=== PATIENT | female | born 1955 | race Caucasian/White ===

== ENCOUNTER → 2018-08-05 08:58 | Outpatient (CLI) | payer BC, SELFPAY ==
[2018-08-05 10:18] LABS: Hemoglobin A1C% w Est Avg Glu 5.8 % (4.0-6.0)
[2018-08-05 11:18] LABS: Alanine Aminotransferase 71 IU/L (9-52); Albumin 4.2 g/dL (3.5-5.0); Albumin Globulin Ratio 1.6 (1.0-2.8); Alkaline Phosphatase 67 U/L (38-126); Aspartate Aminotransferase 37 IU/L (14-36); BUN Creatinine Ratio 26.7 (6-22); Bilirubin Total 0.5 mg/dL (0.2-1.3); Blood Urea Nitrogen 16 mg/dL (7-17); Calcium 9.2 mg/dL (8.4-10.2); Carbon Dioxide 25 mmol/L (22-32); Chloride 107 mmol/L (98-107); Cholesterol 199 mg/dL (140-199); Estimated Glomerular Filt Rate > 60.0 mL/min (>60); Globulin 2.7 g/dL (1.7-4.1); Glucose 115 mg/dL (80-110); HDL Cholesterol 32 mg/dL (40-60); HEMOLYSIS < 15 (0-50); LDL Cholesterol Calculated 112 mg/dL (<100); Potassium 4.3 mmol/L (3.4-5.1); Sodium 145 mmol/L (137-145); Total Protein 6.9 g/dL (6.3-8.2); Triglycerides 273 mg/dL (35-150)
[2018-08-05 17:32] LABS: Creatinine Urine Random 111.8 mg/dL
[2018-08-05 17:36] LABS: Microalbumi Creatinin Ratio Ur 5.3 ug/mg CR (<30); Microalbumin Urine Random < 0.6 mg/dL (0-1.6)
== END ==
PROVIDERS: PCP Physician Assistant; Visit Provider Physician Assistant
DX: E88.81 Metabolic syndrome and other insulin resistance (principal); I10 Essential (primary) hypertension
CPT/HCPCS: 36415; 80053; 80061; 82043; 82570; 83036

== ENCOUNTER → 2018-09-14 08:07 | Outpatient (CLI) | payer BC, SELFPAY ==
--- NOTE | 2018-09-14 | DI.MG.S_ITS ---
BILATERAL DIGITAL SCREENING MAMMOGRAM 3D/2D WITH CAD: 09/14/2018 CLINICAL: Routine screening. Family history of breast cancer. Comparison is made to exams dated: 07/22/2017 mammogram, 06/26/2016 mammogram, and 06/18/2015 mammogram - [facility]. There are scattered fibroglandular elements in both breasts. Current study was also evaluated with a Computer Aided Detection (CAD) system. There are benign biopsy clips in the right breast. No significant masses, calcifications, or other findings are seen in either breast. There has been no significant interval change. IMPRESSION: NEGATIVE There is no mammographic evidence of malignancy. A 1 year screening mammogram is recommended. This exam was interpreted at Station ID: [id number]. NOTE: For mammograms, a report in lay terms will be sent to the patient. Approximately 15% of breast malignancies will not be visualized mammographically. In the management of a palpable breast mass, a negative mammogram must not discourage biopsy of a clinically suspicious lesion. Electronically Signed By: Catracho oviedo/emmanuel:09/14/2018 09:21:51 letter sent: Normal Exam ACR BI-RADS Category 1: Negative [id number]
== END ==
PROVIDERS: PCP Physician Assistant; Visit Provider Physician Assistant
DX: Z12.31 Encounter for screening mammogram for malignant neoplasm of breast (principal); Z80.3 Family history of malignant neoplasm of breast
CPT/HCPCS: 77063; 77067

== ENCOUNTER 2018-12-31 12:47 | Emergency (ER) | payer BC, SELFPAY ==
[2018-12-31 12:55] VITALS: TEMP 36.6
--- NOTE | 2018-12-31 13:01 | DI.RAD.S_ITS ---
PROCEDURE: XR CHEST 1V INDICATIONS: chest pain TECHNIQUE: One view of the chest was acquired. COMPARISON: None. FINDINGS: Surgical changes and devices: None. Lungs and pleura: Lungs are clear. No pleural effusions or pneumothorax. Mediastinum: Mediastinal contours appear normal. Heart size is normal. Bones and chest wall: No suspicious bony lesions. Overlying soft tissues appear unremarkable. IMPRESSION: Normal chest. Dictated by: Elizabeth Khoury M.D. on 12/31/2018 at 15:08 Approved by: Elizabeth Khoury M.D. on 12/31/2018 at 15:08
[2018-12-31 13:10] VITALS: BP 152/70; PULSE 71; RESP 9; O2SAT 98
[2018-12-31 13:30] VITALS: BP 136/81; PULSE 67; RESP 10; O2SAT 96
[2018-12-31 13:31] LABS: Add Manual Diff / Slide Review NO; Basophils Absolute Auto 0 /uL (0-100); Basophils Percent Auto 0.5 % (0-2); Eosinophils Absolute Auto 200 /uL (0-450); Eosinophils Percent Auto 2.6 % (2-4); Hematocrit 43.1 % (36-46); Hemoglobin 14.9 g/dL (12.0-16.0); Lymphocytes Absolute Auto 1800 /uL (1100-4500); Lymphocytes Percent Auto 29.3 % (25-40); Mean Corpuscular HGB Conc 34.6 % (30-36); Mean Corpuscular Hemoglobin 31.8 PG (26-34); Monocytes Absolute Auto 700 /uL (0-900); Monocytes Percent Auto 10.9 % (3-14); Neutrophils Absolute Auto 3400 /uL (1500-7000); Neutrophils Percent Auto 56.7 % (50-75); Platelet Count 271 X10^3/uL (150-400); Red Blood Cell Count 4.68 X10^6/uL (4.0-5.2); Red Cell Distribution Width 13.3 % (11.6-14.8)
[2018-12-31 13:35] LABS: Alanine Aminotransferase 41 IU/L (9-52); Albumin 4.5 g/dL (3.5-5.0); Albumin Globulin Ratio 1.5 (1.0-2.8); Alkaline Phosphatase 69 U/L (38-126); Aspartate Aminotransferase 26 IU/L (14-36); BUN Creatinine Ratio 33.3 (6-22); Bilirubin Total 0.7 mg/dL (0.2-1.3); Blood Urea Nitrogen 20 mg/dL (7-17); Calcium 9.5 mg/dL (8.4-10.2); Carbon Dioxide 24 mmol/L (22-32); Chloride 102 mmol/L (98-107); Creatine Kinase 47 U/L (30-135); Estimated Glomerular Filt Rate > 60.0 mL/min (>60); Glucose 98 mg/dL (80-110); HEMOLYSIS < 15 (0-50); Lipase 137 U/L (23-300); Potassium 3.8 mmol/L (3.4-5.1); Sodium 138 mmol/L (137-145); Total Protein 7.5 g/dL (6.3-8.2)
[2018-12-31 13:37] LABS: PTT Partial Thromboplastin Tim 36 SECONDS (26.4-36.2)
[2018-12-31] MEDS: ASPIRIN 81 MG TAB 324 MG PO (13:41)
[2018-12-31 13:47] LABS: Troponin I < 0.012 ng/mL (0.01-0.034)
--- NOTE | 2018-12-31 13:58 | ED_ITS ---
HPI - Chest Pain <Carol Paulino, DO - Last Filed: 12/31/18 16:04> General Chief Complaint: Chest Pain Stated Complaint: THINK SHE IS HAVING A HEART ATTACK Time Seen by Provider: 12/31/18 13:37 Source: patient and family Mode of arrival: ambulatory Limitations: no limitations History of Present Illness HPI narrative: 63-year-old female comes in with complaint of chest pain. It has resolved. Patient states that she home watching a movie when she had a little bit of pain in her right sort of upper chest. She states that sort of radiated a little bit down towards the side. She states at that she then felt cold in her arms and legs felt sweaty in her palms and shaky all over. She states the pain lasted maybe 60 sec. The cold and sweatiness last 8-9 minutes and the shakiness stopped about 8 or 9 min before I came to evaluate her. This happened about an hour ago had about 1:00 p.m.. Patient states she has not had similar symptoms before. She denies any shortness of breath, no cold cough or congestion, no nausea no vomiting no issues with bowel movements or urination. She works out regularly and states that she has had some sort of right-sided body tightness in her leg and upper chest. She states that she used a 10s unit on her leg yesterday. And she still feels a little tight on that side. She is prediabetic on metformin twice daily, she sometimes takes Prozac and vitamin-D for seasonal affective disorder. She denies any other medical issues. She has had 3 knee surgeries none recently. She does not smoke she drinks 1-2 alcoholic drinks daily denies any illicit. Mom started having some cardiac issues in her 80s and has a pacemaker, status healthy siblings do not have any cardiac, pulmonary or embolic history of the rest of the family. Related Data Home Medications Medication Instructions Recorded Confirmed [OMEGA-3] 800 mg PO QDAY #0 09/22/16 08/10/18 [VITAMIN B-12] SUBLINGUAL QDAY #0 09/22/16 08/10/18 alpha lipoic acid 600 mg PO QDAY #0 09/22/16 08/10/18 multivitamin [Multiple Vitamins] 1 tab PO QDAY #0 02/10/17 08/10/18 Previous Rx's Medication Instructions Recorded estradiol [Estrace] 0.01 % VAGINAL QID #42.5 gm 02/10/17 fluticasone 1 spray INTRANASAL BID #16 gm 06/16/17 Glucose: Home Monitoring Kit kit #1 08/04/17 Glucose: Test Strips str DAILY #100 08/04/17 Lancet: Device ea DAILY #100 08/04/17 celecoxib 100 mg capsule 100 mg PO BIDCC #180 cap 10/11/18 eszopiclone 3 mg tablet 3 mg PO BEDTIME PRN #90 tab 10/11/18 fluoxetine 20 mg capsule 20 mg PO QDAY #90 cap 10/11/18 metformin ER 500 mg 1,000 mg PO QPM #180 tab 10/11/18 tablet,extended release 24 hr hydrocortisone acetate 25 mg 25 mg [place] Q6HP PRN #40 suppositor 10/12/18 rectal suppository Allergies Allergy/AdvReac Type Severity Reaction Status Date / Time trazodone [TRAZODONE] AdvReac Severe NIGHTMARES Verified 12/31/18 13:01 lisinopril [LISINOPRIL] AdvReac Intermediate COUGH Verified 12/31/18 13:01 Sulfa (Sulfonamide AdvReac Mild NAUSEA Verified 12/31/18 13:01 Antibiotics) [SULFA (SULFONAMIDE ANTIBIOTICS)] Review of Systems <Carol Paulino DO - Last Filed: 12/31/18 16:04> Review of Systems ROS Unobtainable: All systems reviewed & are unremarkable except as noted in HPI and below PFSH <Carol Paulino DO - Last Filed: 12/31/18 16:04> Medical History Depression (Chronic) Hemorrhoids (Chronic) Hyperlipemia (Chronic) Knee pain (Chronic ~01/2017) Social History Smoking Status: Never smoker Social History Smoking Status: Never smoker Exam <Carol Paulino DO - Last Filed: 12/31/18 16:04> Narrative Exam Narrative: GENERAL: Alert and oriented x three, well-nourished, well- appearing female in no acute distress. No diaphoresis. No pallor. HEENT: Head normocephalic, atraumatic, EOMI, pupils reactive, face symmetric, moist mucous membranes NECK: Supple, full range of motion CARDIOVASCULAR: Regular rate and rhythm without murmurs, rubs or gallops. RESPIRATORY: Breath sounds equal bilaterally, no wheezes rales or rhonchi. ABDOMEN: Soft, nontender. Normoactive bowel sounds all 4 quadrants. No guarding or rebound, rigidity, no mass : No CVA tenderness EXTREMITIES: Normal range of motion, no clubbing or edema. Neurovascularly intact NEUROLOGICAL: Cranial nerves II through XII grossly intact. Moving all extremities SKIN: Warm, dry, no petechiae, no rashes or lesions. Initial Vital Signs Initial Vital Signs: Vital Signs Temperature 97.8 F 12/31/18 12:55 <Ellis Foster DO - Last Filed: 12/31/18 19:35> Initial Vital Signs Initial Vital Signs: Vital Signs Temperature 97.8 F 12/31/18 12:55 Scores <Carol Paulino DO - Last Filed: 12/31/18 16:04> HEART Score Heart Score history: Slightly Suspicious Heart Score EKG: Normal Heart Score Age: 45-64 years old Heart Score risk factors: 1-2 risk factors Heart Score troponin: < or = to normal limit Heart Score Total: 2 Course <Carol Paulino DO - Last Filed: 12/31/18 16:04> Orders Ordered: ED Orders 12/31/18 13:01 XR chest 1V Stat EKG-12 Lead Stat 12/31/18 13:19 Complete Blood Count AUTO DIFF Stat Comprehensive Metabolic Panel Stat Lipase Stat Partial Thromboplastin Time Stat Prothrombin Time INR Stat Troponin & CK Cardiac Panel Stat 12/31/18 15:15 Troponin & CK Cardiac Panel Stat 12/31/18 15:34 EKG-12 Lead Stat Discontinued Medications Aspirin (Aspirin Chew) 324 mg PO NOW ONE Stop: 12/31/18 13:04 Last Admin: 12/31/18 13:41 Dose: 324 mg Vital Signs - 8 hr 12/31/18 12:55 12/31/18 13:10 12/31/18 13:30 Temperature 97.8 F Pulse Rate 71 67 Respiratory Rate 9 L 10 L Blood Pressure [Right Arm] 152/70 H 136/81 Pulse Oximetry 98 96 12/31/18 14:30 12/31/18 15:27 12/31/18 16:00 Temperature Pulse Rate 68 63 68 Respiratory Rate 16 17 15 Blood Pressure [Right Arm] 154/79 H 127/69 128/64 Pulse Oximetry 96 98 100 <DO Sharla Champion Last Filed: 12/31/18 19:35> Orders Ordered: ED Orders 12/31/18 13:01 XR chest 1V Stat EKG-12 Lead Stat 12/31/18 13:19 Complete Blood Count AUTO DIFF Stat Comprehensive Metabolic Panel Stat Lipase Stat Partial Thromboplastin Time Stat Prothrombin Time INR Stat Troponin & CK Cardiac Panel Stat 12/31/18 15:15 Troponin & CK Cardiac Panel Stat 12/31/18 15:34 EKG-12 Lead Stat Discontinued Medications Aspirin (Aspirin Chew) 324 mg PO NOW ONE Stop: 12/31/18 13:04 Last Admin: 12/31/18 13:41 Dose: 324 mg Vital Signs - 8 hr 12/31/18 12:55 12/31/18 13:10 12/31/18 13:30 Temperature 97.8 F Pulse Rate 71 67 Respiratory Rate 9 L 10 L Blood Pressure [Right Arm] 152/70 H 136/81 Pulse Oximetry 98 96 12/31/18 14:30 12/31/18 15:27 12/31/18 16:00 Temperature Pulse Rate 68 63 68 Respiratory Rate 16 17 15 Blood Pressure [Right Arm] 154/79 H 127/69 128/64 Pulse Oximetry 96 98 100 MDM - Chest Pain <Carol Paulino, DO - Last Filed: 12/31/18 16:04> Lab Data Attestation: I reviewed the patient's lab results. Result diagrams: 12/31/18 13:19 12/31/18 13:19 Lab Results 12/31/18 12/31/18 12/31/18 Range/Units 13:19 13:19 13:19 WBC 6.0 (4.5-11.0) X10^3/uL RBC 4.68 (4.0-5.2) X10^6/uL Hgb 14.9 (12.0-16.0) g/dL Hct 43.1 (36-46) % MCV 92.0 (80-100) fL MCH 31.8 (26-34) PG MCHC 34.6 (30-36) % RDW 13.3 (11.6-14.8) % Plt Count 271 (150-400) X10^3/uL Neut % (Auto) 56.7 (50-75) % Lymph % (Auto) 29.3 (25-40) % [place] % (Auto) 10.9 (3-14) % Eos % (Auto) 2.6 (2-4) % Baso % (Auto) 0.5 (0-2) % Neut # (Auto) 3400 (4820-0389) /uL Lymph # (Auto) 1800 (9150-4081) /uL [place] # (Auto) 700 (0-900) /uL Eos # (Auto) 200 (0-450) /uL Baso # (Auto) 0 (0-100) /uL PT 11.0 (10.1-12.7) SECONDS INR 1.0 (0.9-1.3) APTT 36 (26.4-36.2) SECONDS Sodium 138 (137-145) mmol/L Potassium 3.8 (3.4-5.1) mmol/L Chloride 102 (98-107) mmol/L Carbon Dioxide 24 (22-32) mmol/L BUN 20 H (7-17) mg/dL Creatinine 0.60 (0.52-1.04) mg/dL Estimated GFR > 60.0 (>60) mL/min BUN/Creatinine Ratio 33.3 H (6-22) Glucose 98 (80-110) mg/dL Calcium 9.5 (8.4-10.2) mg/dL Total Bilirubin 0.7 (0.2-1.3) mg/dL AST 26 (14-36) IU/L ALT 41 (9-52) IU/L Alkaline Phosphatase 69 (38-126) U/L Total Creatine Kinase 47 (30-135) U/L CK-MB (CK-2) TNP CK-MB (CK-2) Rel Index TNP Troponin I < 0.012 (0.01-0.034) ng/mL Total Protein 7.5 (6.3-8.2) g/dL Albumin 4.5 (3.5-5.0) g/dL Globulin 3.0 (1.7-4.1) g/dL Albumin/Globulin Ratio 1.5 (1.0-2.8) Lipase 137 (23-300) U/L 12/31/18 Range/Units 15:15 WBC (4.5-11.0) X10^3/uL RBC (4.0-5.2) X10^6/uL Hgb (12.0-16.0) g/dL Hct (36-46) % MCV (80-100) fL MCH (26-34) PG MCHC (30-36) % RDW (11.6-14.8) % Plt Count (150-400) X10^3/uL Neut % (Auto) (50-75) % Lymph % (Auto) (25-40) % [place] % (Auto) (3-14) % Eos % (Auto) (2-4) % Baso % (Auto) (0-2) % Neut # (Auto) (6123-6928) /uL Lymph # (Auto) (2667-4495) /uL [place] # (Auto) (0-900) /uL Eos # (Auto) (0-450) /uL Baso # (Auto) (0-100) /uL PT (10.1-12.7) SECONDS INR (0.9-1.3) APTT (26.4-36.2) SECONDS Sodium (137-145) mmol/L Potassium (3.4-5.1) mmol/L Chloride (98-107) mmol/L Carbon Dioxide (22-32) mmol/L BUN (7-17) mg/dL Creatinine (0.52-1.04) mg/dL Estimated GFR (>60) mL/min BUN/Creatinine Ratio (6-22) Glucose (80-110) mg/dL Calcium (8.4-10.2) mg/dL Total Bilirubin (0.2-1.3) mg/dL AST (14-36) IU/L ALT (9-52) IU/L Alkaline Phosphatase (38-126) U/L Total Creatine Kinase 46 (30-135) U/L CK-MB (CK-2) TNP CK-MB (CK-2) Rel Index TNP Troponin I < 0.012 (0.01-0.034) ng/mL Total Protein (6.3-8.2) g/dL Albumin (3.5-5.0) g/dL Globulin (1.7-4.1) g/dL Albumin/Globulin Ratio (1.0-2.8) Lipase (23-300) U/L Imaging Data Chest x-ray: Radiologist's impression: Anuradha Dozier F [address] [address] XRay Report Signed Patient: Anuradha Dozier BMR#: [id number] : 1955cct:[id number] Age/Sex: 63 / FDate of Service: 12/31/18 Loc: ED Accession Number: [id number] Procedure: XR chest 1V Ordering Provider: Carol Paulino D.O. PROCEDURE: XR CHEST 1V INDICATIONS: chest pain TECHNIQUE: One view of the chest was acquired. COMPARISON: None. FINDINGS: Surgical changes and devices: None. Lungs and pleura: Lungs are clear. No pleural effusions or pneumothorax. Mediastinum: Mediastinal contours appear normal. Heart size is normal. Bones and chest wall: No suspicious bony lesions. Overlying soft tissues appear unremarkable. IMPRESSION: Normal chest. Dictated by: Elizabeth Khoury M.D. on 12/31/2018 at 15:08 Approved by: Elizabeth Khoury M.D. on 12/31/2018 at 15:08 ECG Data Attestation: I personally reviewed and interpreted this ECG as follows: Interpretation: Sinus rhythm with a rate of 67 APR interval 146 [place] 99 QTC of [address] changes. MDM Narrative Medical decision making narrative: Patient Comes in with complaint of chest pain lasted about a minute. She felt sort of cold and shaky afterwards. Patient is asymptomatic at this time. EKG and troponin initially are negative. Um discussed with patient she would like to return home with plan for repeat EKG and troponin for serial enzymes. Patient's heart score is 2. Patient was signed out to Dr. merrill while pending troponin and repeat EKG final evaluation and disposition <Ellis Foster, - Last Filed: 12/31/18 19:35> Lab Data Lab Results 12/31/18 12/31/18 12/31/18 Range/Units 13:19 13:19 13:19 WBC 6.0 (4.5-11.0) X10^3/uL RBC 4.68 (4.0-5.2) X10^6/uL Hgb 14.9 (12.0-16.0) g/dL Hct 43.1 (36-46) % MCV 92.0 (80-100) fL MCH 31.8 (26-34) PG MCHC 34.6 (30-36) % RDW 13.3 (11.6-14.8) % Plt Count 271 (150-400) X10^3/uL Neut % (Auto) 56.7 (50-75) % Lymph % (Auto) 29.3 (25-40) % [place] % (Auto) 10.9 (3-14) % Eos % (Auto) 2.6 (2-4) % Baso % (Auto) 0.5 (0-2) % Neut # (Auto) 3400 (5773-4576) /uL Lymph # (Auto) 1800 (6768-6352) /uL [place] # (Auto) 700 (0-900) /uL Eos # (Auto) 200 (0-450) /uL Baso # (Auto) 0 (0-100) /uL PT 11.0 (10.1-12.7) SECONDS INR 1.0 (0.9-1.3) APTT 36 (26.4-36.2) SECONDS Sodium 138 (137-145) mmol/L Potassium 3.8 (3.4-5.1) mmol/L Chloride 102 (98-107) mmol/L Carbon Dioxide 24 (22-32) mmol/L BUN 20 H (7-17) mg/dL Creatinine 0.60 (0.52-1.04) mg/dL Estimated GFR > 60.0 (>60) mL/min BUN/Creatinine Ratio 33.3 H (6-22) Glucose 98 (80-110) mg/dL Calcium 9.5 (8.4-10.2) mg/dL Total Bilirubin 0.7 (0.2-1.3) mg/dL AST 26 (14-36) IU/L ALT 41 (9-52) IU/L Alkaline Phosphatase 69 (38-126) U/L Total Creatine Kinase 47 (30-135) U/L CK-MB (CK-2) TNP CK-MB (CK-2) Rel Index TNP Troponin I < 0.012 (0.01-0.034) ng/mL Total Protein 7.5 (6.3-8.2) g/dL Albumin 4.5 (3.5-5.0) g/dL Globulin 3.0 (1.7-4.1) g/dL Albumin/Globulin Ratio 1.5 (1.0-2.8) Lipase 137 (23-300) U/L 12/31/18 Range/Units 15:15 WBC (4.5-11.0) X10^3/uL RBC (4.0-5.2) X10^6/uL Hgb (12.0-16.0) g/dL Hct (36-46) % MCV (80-100) fL MCH (26-34) PG MCHC (30-36) % RDW (11.6-14.8) % Plt Count (150-400) X10^3/uL Neut % (Auto) (50-75) % Lymph % (Auto) (25-40) % [place] % (Auto) (3-14) % Eos % (Auto) (2-4) % Baso % (Auto) (0-2) % Neut # (Auto) (6260-6528) /uL Lymph # (Auto) (9256-6239) /uL [place] # (Auto) (0-900) /uL Eos # (Auto) (0-450) /uL Baso # (Auto) (0-100) /uL PT (10.1-12.7) SECONDS INR (0.9-1.3) APTT (26.4-36.2) SECONDS Sodium (137-145) mmol/L Potassium (3.4-5.1) mmol/L Chloride (98-107) mmol/L Carbon Dioxide (22-32) mmol/L BUN (7-17) mg/dL Creatinine (0.52-1.04) mg/dL Estimated GFR (>60) mL/min BUN/Creatinine Ratio (6-22) Glucose (80-110) mg/dL Calcium (8.4-10.2) mg/dL Total Bilirubin (0.2-1.3) mg/dL AST (14-36) IU/L ALT (9-52) IU/L Alkaline Phosphatase (38-126) U/L Total Creatine Kinase 46 (30-135) U/L CK-MB (CK-2) TNP CK-MB (CK-2) Rel Index TNP Troponin I < 0.012 (0.01-0.034) ng/mL Total Protein (6.3-8.2) g/dL Albumin (3.5-5.0) g/dL Globulin (1.7-4.1) g/dL Albumin/Globulin Ratio (1.0-2.8) Lipase (23-300) U/L Discharge Plan Departure Patient Disposition: Home Clinical Impression: Atypical chest pain Discharge Date/Time: 12/31/18 16:21 Interventions: ED Discharge Assessment Last Done: 12/31/18 16:21 Instructions: DI for Atypical Chest Pain Activity Restrictions/Additional Instructions: *You have been diagnosed with [ Atypical chest pain, myocardial infarction ( heart attack) ruled out ] *What to do: *Take medications as directed *Follow up with your primary care provider in 2-3 days, call for an appointment. Let them know you were seen in the Emergency Department and that we ask that you be seen in follow up *Return to ER if you should have any new, worsening or concerning symptoms Prescriptions: No Action [VITAMIN B-12] Sublingual QDAY Qty: 0 RF: 0 [OMEGA-3] 800 mg PO QDAY Qty: 0 RF: 0 alpha lipoic acid 600 MG capsule 600 mg PO QDAY Qty: 0 RF: 0 multivitamin [Multiple Vitamins] 1 EACH tablet 1 tab PO QDAY Qty: 0 RF: 0 estradiol [Estrace] 0.01 % cream 0.01 % Vaginal QID Qty: 42.5 RF: 0 fluticasone 16 GM spray,suspension 1 spray Intranasal BID Qty: 16 RF: 1 Glucose: Home Monitoring Kit Qty: 1 RF: 0 Glucose: Test Strips DAILY Qty: 100 RF: 3 Lancet: Device DAILY Qty: 100 RF: 3 celecoxib 100 mg capsule 100 mg PO BIDCC Qty: 180 RF: 1 fluoxetine 20 mg capsule 20 mg PO QDAY Qty: 90 RF: 3 metformin 500 mg tablet extended release 24 hr 1,000 mg PO QPM Qty: 180 RF: 3 eszopiclone 3 mg tablet 3 mg PO BEDTIME PRN (Reason: insomnia) Qty: 90 RF: 1 hydrocortisone acetate 25 mg suppository 25 mg [place] Q6HP PRN (Reason: hemorrhoids) Qty: 40 RF: 3 Referrals: Nicole Rebolledo PA-C [Primary Care Provider] - <Ellis Foster DO - Last Filed: 12/31/18 19:35> Cosign ED Attending Mason Attestation: I was immediately available in the department for consultation. Documentation has been reviewed. I agree with assessment and plan.
[2018-12-31 14:30] VITALS: BP 154/79; PULSE 68; RESP 16; O2SAT 96
[2018-12-31 15:27] VITALS: BP 127/69; PULSE 63; RESP 17; O2SAT 98
[2018-12-31 15:35] LABS: Creatine Kinase 46 U/L (30-135)
[2018-12-31 15:47] LABS: Troponin I < 0.012 ng/mL (0.01-0.034)
[2018-12-31 16:00] VITALS: BP 128/64; PULSE 68; RESP 15; O2SAT 100
== END 2018-12-31 16:21 | disposition home or self-care (01) ==
PROVIDERS: Emergency Medicine; Emergency Provider Emergency Medicine; PCP Physician Assistant
DX: R07.89 Other chest pain (principal)
CPT/HCPCS: 36415; 36591; 71045; 80053; 82550; 83690; 84484; 85025; 85610; 85730; 93005; 99283; 99285

== ENCOUNTER → 2019-08-08 10:19 | Outpatient (CLI) | payer BC, SELFPAY ==
[2019-08-08 11:18] LABS: Hemoglobin A1C% w Est Avg Glu 5.7 % (4.0-6.0)
[2019-08-08 11:19] LABS: Add Manual Diff / Slide Review NO; Basophils Absolute Auto 0 /uL (0-100); Eosinophils Absolute Auto 200 /uL (0-450); Eosinophils Percent Auto 3.5 % (2-4); Hematocrit 46.3 % (36-46); Hemoglobin 15.9 g/dL (12.0-16.0); Lymphocytes Absolute Auto 1300 /uL (1100-4500); Lymphocytes Percent Auto 28.7 % (25-40); Mean Corpuscular HGB Conc 34.3 % (30-36); Mean Corpuscular Hemoglobin 31.7 PG (26-34); Mean Corpuscular Volume 92.6 fL (80-100); Monocytes Absolute Auto 400 /uL (0-900); Monocytes Percent Auto 7.7 % (3-14); Neutrophils Absolute Auto 2800 /uL (1500-7000); Neutrophils Percent Auto 59.1 % (50-75); Platelet Count 246 X10^3/uL (150-400); Red Cell Distribution Width 12.7 % (11.6-14.8); White Blood Cell Count 4.7 X10^3/uL (4.5-11.0)
[2019-08-08 11:33] LABS: Iron 88 ug/dL (37-170)
[2019-08-08 11:36] LABS: Alanine Aminotransferase 70 IU/L (9-52); Albumin 4.5 g/dL (3.5-5.0); Albumin Globulin Ratio 1.5 (1.0-2.8); Alkaline Phosphatase 63 U/L (38-126); Aspartate Aminotransferase 41 IU/L (14-36); Bilirubin Total 0.7 mg/dL (0.2-1.3); Blood Urea Nitrogen 15 mg/dL (7-17); Calcium 9.8 mg/dL (8.4-10.2); Carbon Dioxide 27 mmol/L (22-32); Chloride 105 mmol/L (98-107); Cholesterol 229 mg/dL (140-199); Estimated Glomerular Filt Rate > 60.0 mL/min (>60); Globulin 3.1 g/dL (1.7-4.1); Glucose 118 mg/dL (80-110); HDL Cholesterol 34 mg/dL (40-60); HEMOLYSIS < 15 (0-50); LDL Cholesterol Calculated 144 mg/dL (<100); Potassium 4.1 mmol/L (3.4-5.1); Sodium 142 mmol/L (137-145); Total Protein 7.6 g/dL (6.3-8.2); Triglycerides 257 mg/dL (35-150)
[2019-08-08 11:50] LABS: Vitamin D 25 Hydroxy (D3) 44.6 ng/mL (30.0-100.0)
[2019-08-08 12:04] LABS: Thyroid Stimulating Hormone 2.24 uIU/mL (0.47-4.68)
[2019-08-08 12:10] LABS: Ferritin 70.3 ng/mL (11.1-264)
[2019-08-08 12:40] LABS: Folate 16.3 ng/mL (2.76-20.0)
[2019-08-08 20:40] LABS: Vitamin B12 697 pg/mL (239-931)
[2019-08-10 16:50] LABS: Zinc 83 mcg/dL (60-130)
[2019-08-11 17:59] LABS: Vitamin A 82 mcg/dL (38-98)
[2019-08-11 22:52] LABS: Vitamin B1 168 nmol/L (78-185)
== END ==
PROVIDERS: PCP Physician Assistant; Visit Provider Surgery
DX: I10 Essential (primary) hypertension (principal); E78.5 Hyperlipidemia, unspecified; M54.9 Dorsalgia, unspecified; K21.9 Gastro-esophageal reflux disease without esophagitis
CPT/HCPCS: 36415; 80053; 80061; 82306; 82607; 82728; 82746; 83036; 83540; 84425; 84443; 84590; 84630; 85025

== ENCOUNTER → 2019-12-14 09:16 | Outpatient (CLI) | payer BC, SELFPAY ==
[2019-12-14 10:25] LABS: Cholesterol 211 mg/dL (140-199); HDL Cholesterol 36 mg/dL (40-60); LDL Cholesterol Calculated 149 mg/dL (<100); Triglycerides 131 mg/dL (35-150)
[2019-12-14 10:39] LABS: Hemoglobin A1C% w Est Avg Glu 5.7 % (4.0-6.0)
== END ==
PROVIDERS: PCP Physician Assistant; Visit Provider Physician Assistant
DX: E78.2 Mixed hyperlipidemia (principal); E88.81 Metabolic syndrome and other insulin resistance
CPT/HCPCS: 36415; 80061; 83036

== ENCOUNTER 2020-01-29 11:31 | Day surgery (SDC) | payer BC, SELFPAY ==
[2020-01-26 11:58] VITALS: BMI 31.8
[2020-01-29] VITALS (8 sets, daily range): BP systolic 113–132; BP diastolic 59–75; PULSE 57–78; RESP 10–15; TEMP 36.2–36.7; O2SAT 96–100; BMI 31.1
--- NOTE | 2020-01-29 | PATH_ITS ---
[facility] Accession Number: [id number] . 01 Material submitted: . back - BACK MASS . 01 Diagnosis: Back, Excision: Lipoma. MRV 01/31/2020 1253 Local . 01 Electronically signed: . Minnie Mora MD, Dermatopathologist NPI- [id number] . 01 Gross description: . BACK MASS: Received in formalin is 1 fragment of olivas soft tissue measuring 4.5 x 3.5 x 2.0 cm. Tissue is inked. Specimen is sectioned and submitted in customer development representative sections in 4 cassettes. /[facility] 01/29/20209 Local . 01 Pathologist provided ICD-10: D17.9 . 01 CPT . 083327 Performed at: [address] [facility] [address], [place], [place] [id number] MD Catracho Rodriguez MD Phone: [phone]
[2020-01-29] MEDS: LACTATED RINGERS 1,000 ML 42 ML IV (12:54)
--- NOTE | 2020-01-29 14:20 | PM.PREOP ---
Pre-operative Note Interval Note History & Physical reviewed/Exam performed by Physician: Yes Changes to H&P: No
--- NOTE | 2020-01-29 14:39 | PM.PREOP ---
Pre-operative Note Interval Note History & Physical reviewed/Exam performed by Physician: Yes Changes to H&P: No
[2020-01-29] MEDS: CEFAZOLIN 2 GM/100 ML FROZ.PIGGY IV (14:42)
--- NOTE | 2020-01-29 14:59 | SUR.OPER ---
Lateral on padded OR bed, head on pillow, gel axillary roll in place, bottom leg bent with gel pad under knee to foot, upper leg straight and supported with pillows. Upper arm supported by pillows and secured over bottom arm to padded arm board. Safety belt at hip, tape over blanket lower legs.
[2020-01-29] MEDS: BUPIVACAINE 0.5% W/ EPI (PF) 10 ML VIAL 18 ML INJ (15:14)
--- NOTE | 2020-01-29 15:26 | PM.OP.1 ---
Operative Date/Time/Diagnoses Date of procedure: 01/29/20 Time of procedure: 15:26 Pre-op diagnosis: Mass left back near midline Post-op diagnosis: same (Fatty mass consistent with a lipoma. Measured 5 x 3 cm) Procedure & Clinicians Procedure: Excision of mass Same procedure as scheduled: Yes Indications: Painful mass of back Surgeon: To [place] Click Yes if Unassisted: Yes Anesthesia Type: General Operative Notes Findings: Fatty mass extending from subcu down to fascia of the paraspinal muscles Closure Type: primary Specimen(s): none sent (Mass) Prosthetic devices, grafts, tissues, transplants, or devices: None Estimated Blood Loss (mL): 5 Blood products transfused: none Procedure in detail: Patient was placed in the right lateral decubitus position out on a beanbag afternoon going general LMA anesthesia. Pressure points were padded. She was prepped and draped in the usual fashion. Local anesthetic was infiltrated in transverse a gin made overlying this mass. The incision was carried down to the level the mass. The mass was excised using cautery principally. It was densely adherent to the surrounding structures into the paraspinal muscle fascia. Was excised hemostasis was achieved with cautery. Local anesthetic was infiltrated. The subcu was reapproximated with interrupted 3 0 Vicryl. The skin was closed running 4 0 Vicryl subcuticular stitch and Steri-Strips. Dressing was applied the patient was placed back on her bed extubated and taken recovery area in good condition Complications: none Post-operative Condition: stable Disposition: PACU
== END 2020-01-29 16:20 | disposition home or self-care (01) ==
PROVIDERS: PCP Family Medicine; Referring Provider Specialist; Visit Provider Specialist
PROC: (CPT 21931; principal; 2020-01-29 12:45)
DX: D17.1 Benign lipomatous neoplasm of skin and subcutaneous tissue of trunk (principal)
CPT/HCPCS: 21931; J0690; J2250; J2405; J2704; J3010

== ENCOUNTER → 2020-03-01 09:36 | Outpatient (CLI) | payer BC, SELFPAY ==
[2020-03-01 12:50] LABS: Alanine Aminotransferase 26 IU/L (<35); Albumin 4.2 g/dL (3.5-5.0); Albumin Globulin Ratio 1.4 (1.0-2.8); Alkaline Phosphatase 70 U/L (38-126); Aspartate Aminotransferase 23 IU/L (14-36); BUN Creatinine Ratio 27.7 (6-22); Bilirubin Total 0.5 mg/dL (0.2-1.3); Blood Urea Nitrogen 18 mg/dL (7-17); Calcium 9.7 mg/dL (8.4-10.2); Carbon Dioxide 25 mmol/L (22-32); Chloride 104 mmol/L (98-107); Estimated Glomerular Filt Rate > 60.0 mL/min (>60); Globulin 2.9 g/dL (1.7-4.1); Glucose 127 mg/dL (80-110); HEMOLYSIS < 15 (0-50); Potassium 4.4 mmol/L (3.4-5.1); Sodium 138 mmol/L (137-145); Total Protein 7.1 g/dL (6.3-8.2)
== END ==
PROVIDERS: PCP Family Medicine; Referring Provider Physician Assistant; Visit Provider Physician Assistant
DX: E88.81 Metabolic syndrome and other insulin resistance (principal); I10 Essential (primary) hypertension
CPT/HCPCS: 36415; 80053

== ENCOUNTER → 2020-06-05 14:58 | Outpatient (CLI) | payer OTHER, SELFPAY ==
--- NOTE | 2020-06-05 14:59 | DI.RAD.S_ITS ---
PROCEDURE: XR TIBIA FUBULA RT 2V INDICATIONS: r brown pain TECHNIQUE: 2 views of the tibia and fibula were acquired. COMPARISON: None. FINDINGS: Bones: No fractures or dislocations. No suspicious bony lesions. Soft tissues: No suspicious soft tissue calcifications or masses. IMPRESSION: No acute osseous abnormality of the right lower leg. Dictated by: Naif Mcqueen M.D. on 06/05/2020 at 14:30 Approved by: Naif Mcqueen M.D. on 06/05/2020 at 14:30
== END ==
PROVIDERS: PCP Family Medicine; Referring Provider Physician Assistant; Visit Provider Physician Assistant
DX: M79.661 Pain in right lower leg (principal)
CPT/HCPCS: 73590

== ENCOUNTER → 2021-01-17 07:15 | Outpatient (CLI) | payer MEDICARE, OTHER, SELFPAY ==
[2021-01-17 08:47] LABS: Alanine Aminotransferase 56 IU/L (<35); Albumin 4.3 g/dL (3.5-5.0); Albumin Globulin Ratio 1.7 (1.0-2.8); Alkaline Phosphatase 71 U/L (38-126); Aspartate Aminotransferase 37 IU/L (14-36); Bilirubin Total 0.4 mg/dL (0.2-1.3); Blood Urea Nitrogen 12 mg/dL (7-17); Calcium 9.1 mg/dL (8.4-10.2); Carbon Dioxide 28 mmol/L (22-32); Chloride 104 mmol/L (98-107); Cholesterol 218 mg/dL (140-199); Estimated Glomerular Filt Rate > 60.0 mL/min (>60); Globulin 2.6 g/dL (1.7-4.1); Glucose 173 mg/dL (80-110); HDL Cholesterol 32 mg/dL (40-60); HEMOLYSIS < 15 (0-50); LDL Cholesterol Calculated 126 mg/dL (<100); Potassium 3.9 mmol/L (3.4-5.1); Sodium 138 mmol/L (137-145); Total Protein 6.9 g/dL (6.3-8.2); Triglycerides 300 mg/dL (35-150)
[2021-01-17 08:53] LABS: Hemoglobin A1C% w Est Avg Glu 7.2 % (4.0-6.0)
[2021-01-17 09:02] LABS: Creatinine Urine Random 167.8 mg/dL
[2021-01-17 09:08] LABS: Microalbumi Creatinin Ratio Ur 4.1 ug/mg CR (<30); Microalbumin Urine Random 0.7 mg/dL (0-1.6)
== END ==
PROVIDERS: PCP Family Medicine; Referring Provider Family Medicine; Visit Provider Family Medicine
DX: E11.9 Type 2 diabetes mellitus without complications (principal)
CPT/HCPCS: 36415; 80053; 80061; 82043; 82570; 83036

== ENCOUNTER → 2021-02-20 14:08 | Outpatient (CLI) | payer MEDICARE, OTHER, SELFPAY ==
--- NOTE | 2021-02-20 15:27 | DIET.PN ---
Diabetes Intake: Initial Assessment Assess: Ms. Dozier is a 66 yof referred for newly diagnosed type 2 diabetes. Since diagnosis, she has cut down on her carb and sweet. She has completely cut out alcohol and has been exercising every day. She is very conscious of her eating habits and has been monitoring her fasting glucose daily. Labs: Per pt report: A1c: 7.2 Meds: 1000mg metformin BID Diet: per 24 hr recall: B: 3 eggs/w brumble (yogurt butter); premier protein w/ 1/2 banana, berries L: 2 Wasa crackers, 1 tbls PB, pear, ham D: roasted chicken wings, garlic, 1/4 c pasta salad Sn: carrots, walnuts Wt: 203lb Ht: 66in BMI: 32.8 BP: 146/88 DX: Altered nutrition related laboratory values related to impaired glucose metabolism, lack of previous exposure to nutrition information as evidenced by pt report, diagnosis of diabetes, previous diet high in refined carbohydrates. Intervention: 1. Completed intake assessment. Discussed barriers to care. 2. Discussed pathophysiology of diabetes. Reviewed A1c and its correlation to blood glucose numbers. Discussed recommended BG ranges. 3. Discussed importance of self-monitoring, how often, and when to check. 4. Reviewed hyper/hypoglycemia and treatment. 5. Reviewed safe disposal of equipment (strip/lancets/insulin needles). 6. Created SMART goals for pt self-care and success. 7. Discussed program curriculum outline and class needs based on individual goals. SMART Goals: 1. Pt goal weight of 180 and a1c <6.5 in the next 3-6 mo through continued daily exercise and healthy eating. Monitor/Evaluate: Pt will attend full DSME program. Basic Nutrition class scheduled for Feb 25.
== END ==
PROVIDERS: PCP Family Medicine; Referring Provider Family Medicine; Visit Provider Family Medicine
DX: E11.9 Type 2 diabetes mellitus without complications (principal); E66.9 Obesity, unspecified; Z68.32 Body mass index [BMI] 32.0-32.9, adult; Z79.84 Long term (current) use of oral hypoglycemic drugs; Z71.3 Dietary counseling and surveillance
CPT/HCPCS: G0108

== ENCOUNTER → 2021-02-25 16:08 | Outpatient (CLI) | payer MEDICARE, OTHER, SELFPAY ==
--- NOTE | 2021-02-25 16:10 | DIET.PN ---
Diabetes: Healthy Eating 2 Intervention: Fats effects on glucose, weight, heart disease, cholesterol Sat Vs Unsat Protein- animal and plant based options Low, med, high fat meats Sugar substitutes Sodium Health claims Grocery shopping guidelines Eating away from home Alcohol Sick day guidelines Ketone Testing
== END ==
PROVIDERS: PCP Family Medicine; Referring Provider Family Medicine; Visit Provider Family Medicine
DX: E11.9 Type 2 diabetes mellitus without complications (principal); Z71.3 Dietary counseling and surveillance
CPT/HCPCS: G0109

== ENCOUNTER → 2021-03-18 13:59 | Outpatient (CLI) | payer MEDICARE, OTHER, SELFPAY ==
--- NOTE | 2021-03-18 15:48 | DIET.PN ---
Diabetes: Healthy Eating 1 Intervention: ? Discussed pathophysiology of diabetes and impact of nutrition/diet on blood sugar control.? Discussed fed versus non-fed state.?? ? Reviewed importance of Balance, Variety, and Moderation. ? Discussed the effect of carbohydrates/protein/fat on blood sugar control.? ? Stressed importance of consistent carbohydrate intake at each meal and provided instructions for recommended servings/portions of carbohydrates/protein per meal. Provided educational material. ? Reviewed carbohydrate counting and measuring carbohydrate content via serving sizes and reading nutrition labels.? Provided handouts.?? ? Discussed the difference between simple versus complex carbohydrates and the effect of fiber on blood sugar control.? Discussed various methods to increase fiber content in diet. ? Discussed the plate method for creating more carbohydrate conscious balanced meals. ? Stressed importance of meal timing and not going >4-5 hours between meals. Encouraged adding protein to evening snack to support glucose control overnight. ? Discussed importance of making dietary habits part of lifestyle change.
== END ==
PROVIDERS: PCP Family Medicine; Referring Provider Family Medicine; Visit Provider Family Medicine
DX: E11.9 Type 2 diabetes mellitus without complications (principal); Z71.3 Dietary counseling and surveillance
CPT/HCPCS: G0109

== ENCOUNTER → 2021-03-20 13:15 | Outpatient (CLI) | payer MEDICARE, OTHER, SELFPAY | PROVIDERS: PCP Family Medicine; Referring Provider Student in an Organized Health Care Education/Training Program; Visit Provider Student in an Organized Health Care Education/Training Program | DX: R30.0 Dysuria (principal) | CPT/HCPCS: 87077; 87086; 87186 ==

== ENCOUNTER → 2021-04-08 13:16 | Outpatient (CLI) | payer MEDICARE, OTHER, SELFPAY ==
[2021-04-08 13:19] LABS: Bacteria Urine None Seen; RBC Urine None Seen (0-5/HPF)
[2021-04-08 13:24] LABS: Appearance Urine UA CLEAR; Bilirubin Urine UA NEGATIVE (NEGATIVE); Color Urine UA YELLOW; Glucose Urine UA NEGATIVE (Negative); Ketones Urine UA NEGATIVE (NEGATIVE); Leukocyte Esterase Urine UA NEGATIVE (NEGATIVE); Nitrite Urine UA NEGATIVE (Negative); Occult Blood Urine UA TRACE-INTACT (Negative); Protein Urine UA NEGATIVE (Negative); Urobilinogen Urine UA 0.2 E.U./dL (0.2)
[2021-04-08 13:37] LABS: pH Urine UA 5.5 (4.5-8.0)
[2021-04-08 14:12] LABS: Culture Indicated Urine Cult Not Indicated; Squamous Epithelial Cell Urine 0-1 /HPF (0-5/HPF); WBC Urine 0-1/HPF (0-5/HPF)
== END ==
PROVIDERS: PCP Family Medicine; Visit Provider Nurse Practitioner Family
DX: N23 Unspecified renal colic (principal); R35.0 Frequency of micturition
CPT/HCPCS: 81001; 87086

== ENCOUNTER → 2021-05-09 07:39 | Outpatient (CLI) | payer MEDICARE, OTHER, SELFPAY ==
[2021-05-09 08:20] LABS: Hemoglobin A1C% w Est Avg Glu 5.8 % (4.0-6.0)
[2021-05-09 08:54] LABS: Alanine Aminotransferase 36 IU/L (<35); Albumin Globulin Ratio 1.5 (1.0-2.8); Alkaline Phosphatase 58 U/L (38-126); Aspartate Aminotransferase 30 IU/L (14-36); BUN Creatinine Ratio 22.8 (6-22); Bilirubin Total 0.5 mg/dL (0.2-1.3); Blood Urea Nitrogen 13 mg/dL (7-17); Calcium 9.3 mg/dL (8.4-10.2); Carbon Dioxide 24 mmol/L (22-32); Chloride 106 mmol/L (98-107); Estimated Glomerular Filt Rate > 60.0 mL/min (>60); Globulin 2.6 g/dL (1.7-4.1); Glucose 132 mg/dL (80-110); HEMOLYSIS < 15 (0-50); Potassium 4.3 mmol/L (3.4-5.1); Sodium 138 mmol/L (137-145); Total Protein 6.6 g/dL (6.3-8.2)
[2021-05-10 01:36] LABS: HBsAg Screen Negative (Negative); Hepatitis A Antibody IgM Negative (Negative); Hepatitis B Core Antibody IgM Negative (Negative); Hepatitis C Antibody <0.1 s/co ratio (0.0-0.9)
[2021-05-11 13:34] LABS: Cholesterol 192 mg/dL (140-199); HDL Cholesterol 31 mg/dL (40-60); LDL Cholesterol Calculated 119 mg/dL (<100); Triglycerides 211 mg/dL (35-150)
== END ==
PROVIDERS: PCP Family Medicine; Referring Provider Family Medicine; Visit Provider Family Medicine
DX: E11.69 Type 2 diabetes mellitus with other specified complication (principal); E66.9 Obesity, unspecified; I10 Essential (primary) hypertension; R79.89 Other specified abnormal findings of blood chemistry; Z68.34 Body mass index [BMI] 34.0-34.9, adult; E78.5 Hyperlipidemia, unspecified; R74.01 Elevation of levels of liver transaminase levels
CPT/HCPCS: 36415; 80053; 80061; 80074; 83036

== ENCOUNTER → 2021-07-22 14:49 | Outpatient (CLI) | payer MEDICARE, OTHER, SELFPAY | PROVIDERS: PCP Family Medicine; Visit Provider Physician Assistant | DX: N34.3 Urethral syndrome, unspecified (principal) | CPT/HCPCS: 81002; 87086 ==

== ENCOUNTER → 2021-09-25 07:44 | Outpatient (CLI) | payer MEDICARE, OTHER, SELFPAY ==
[2021-09-25 08:46] LABS: Alanine Aminotransferase 29 IU/L (<35); Albumin 4.2 g/dL (3.5-5.0); Albumin Globulin Ratio 1.5 (1.0-2.8); Alkaline Phosphatase 48 U/L (38-126); Aspartate Aminotransferase 27 IU/L (14-36); Bilirubin Total 0.5 mg/dL (0.2-1.3); Blood Urea Nitrogen 13 mg/dL (7-17); Calcium 9.2 mg/dL (8.4-10.2); Carbon Dioxide 29 mmol/L (22-32); Chloride 103 mmol/L (98-107); Cholesterol 204 mg/dL (140-199); Estimated Glomerular Filt Rate > 60.0 mL/min (>60); Globulin 2.8 g/dL (1.7-4.1); Glucose 120 mg/dL (80-110); HDL Cholesterol 33 mg/dL (40-60); HEMOLYSIS < 15 (0-50); LDL Cholesterol Calculated 135 mg/dL (<100); Potassium 4.3 mmol/L (3.4-5.1); Sodium 138 mmol/L (137-145); Triglycerides 178 mg/dL (35-150)
[2021-09-25 08:57] LABS: Hemoglobin A1C% w Est Avg Glu 5.7 % (4.0-6.0)
== END ==
PROVIDERS: PCP Family Medicine; Referring Provider Family Medicine; Visit Provider Family Medicine
DX: E11.69 Type 2 diabetes mellitus with other specified complication (principal); E66.9 Obesity, unspecified; E78.5 Hyperlipidemia, unspecified; R79.89 Other specified abnormal findings of blood chemistry; I10 Essential (primary) hypertension; Z68.34 Body mass index [BMI] 34.0-34.9, adult
CPT/HCPCS: 36415; 80053; 80061; 83036

== ENCOUNTER → 2022-01-16 14:07 | Outpatient (CLI) | payer MEDICARE, OTHER, SELFPAY ==
--- NOTE | 2022-01-16 14:15 | DI.RAD.S_ITS ---
PROCEDURE: XR RIBS LT MIN 3V W CXR1V INDICATIONS: fall, left rib pain TECHNIQUE: 2 views of the left ribs were acquired, along with a single view chest. COMPARISON: None. FINDINGS: Surgical changes and devices: None. Bones and chest wall: No acute displaced rib fracture. No suspicious bony lesions. Overlying soft tissues appear unremarkable. Lungs and pleura: No pleural effusions or pneumothorax. Lungs appear clear. Mediastinum: Mediastinal contours appear normal. Heart size is normal. IMPRESSION: No acute displaced rib fracture. No pneumothorax. Dictated by: Fransico Dorsey M.D. on 01/16/2022 at 15:03 Approved by: Fransico Dorsey M.D. on 01/16/2022 at 15:04
== END ==
PROVIDERS: PCP Family Medicine; Referring Provider Nurse Practitioner Family; Visit Provider Nurse Practitioner Family
DX: S29.9XXA Unspecified injury of thorax, initial encounter (principal); W19.XXXA Unspecified fall, initial encounter
CPT/HCPCS: 71101

== ENCOUNTER → 2022-08-21 07:28 | Outpatient (CLI) | payer MEDICARE, OTHER, SELFPAY ==
[2022-08-21 08:42] LABS: Hemoglobin A1C% w Est Avg Glu 6.2 % (4.0-6.0)
[2022-08-21 09:14] LABS: Hematocrit 41.4 % (36-46); Hemoglobin 14.2 g/dL (12.0-16.0); Mean Corpuscular HGB Conc 34.3 % (30-36); Mean Corpuscular Hemoglobin 31.2 PG (26-34); Mean Corpuscular Volume 90.9 fL (80-100); Platelet Count 264 X10^3/uL (150-400); Red Blood Cell Count 4.55 X10^6/uL (4.0-5.2); Red Cell Distribution Width 13.2 % (11.6-14.8); White Blood Cell Count 5.4 X10^3/uL (4.5-11.0)
[2022-08-21 10:42] LABS: Alanine Aminotransferase 22 IU/L (<35); Albumin 4.2 g/dL (3.5-5.0); Albumin Globulin Ratio 1.7 (1.0-2.8); Alkaline Phosphatase 55 U/L (38-126); Aspartate Aminotransferase 19 IU/L (14-36); BUN Creatinine Ratio 26.3 (6-22); Bilirubin Total 0.4 mg/dL (0.2-1.3); Blood Urea Nitrogen 15 mg/dL (7-17); Calcium 8.8 mg/dL (8.4-10.2); Carbon Dioxide 25 mmol/L (22-32); Chloride 103 mmol/L (98-107); Cholesterol 178 mg/dL (140-199); Estimated Glomerular Filt Rate > 60 mL/min (>60); Globulin 2.5 g/dL (1.7-4.1); Glucose 126 mg/dL (80-110); HDL Cholesterol 38 mg/dL (40-60); HEMOLYSIS < 15 (0-50); LDL Cholesterol Calculated 109 mg/dL (<100); Potassium 4.2 mmol/L (3.4-5.1); Sodium 138 mmol/L (137-145); Total Protein 6.7 g/dL (6.3-8.2); Triglycerides 155 mg/dL (35-150)
[2022-08-21 11:06] LABS: TSH w/ Reflex to FT4 2.79 uIU/mL (0.47-4.68)
[2022-08-21 12:15] LABS: Creatinine Urine Random 98.5 mg/dL
[2022-08-21 12:22] LABS: Microalbumin Urine Random 0.6 mg/dL (0-1.6)
== END ==
PROVIDERS: PCP Internal Medicine; Referring Provider Internal Medicine; Visit Provider Internal Medicine
DX: E11.69 Type 2 diabetes mellitus with other specified complication (principal); E66.9 Obesity, unspecified; E78.2 Mixed hyperlipidemia; I10 Essential (primary) hypertension; R79.89 Other specified abnormal findings of blood chemistry
CPT/HCPCS: 36415; 80053; 80061; 82043; 82570; 83036; 84443; 85027

== ENCOUNTER → 2022-08-31 12:07 | Outpatient (CLI) | payer MEDICARE, OTHER, SELFPAY ==
--- NOTE | 2022-08-31 12:08 | DI.RAD.S_ITS ---
PROCEDURE: XR DEXA AXIAL SKELETON INDICATIONS: postmenopausal COMPARISON: None. FINDINGS: This blank DEXA report has been sent in error by the PACS system. The correct and complete report will be forthcoming in 1-2 days. Thank you for your patience and understanding. Dictated by: Antony Das M.D. on 08/31/2022 at 15:54 Approved by: Antony Das M.D. on 08/31/2022 at 15:55
== END ==
PROVIDERS: PCP Internal Medicine; Referring Provider Internal Medicine; Visit Provider Internal Medicine
DX: Z78.0 Asymptomatic menopausal state (principal); Z13.820 Encounter for screening for osteoporosis; Z79.890 Hormone replacement therapy
CPT/HCPCS: 77080

== ENCOUNTER → 2022-10-10 12:46 | Outpatient (CLI) | payer MEDICARE, OTHER, SELFPAY | PROVIDERS: PCP Internal Medicine; Visit Provider Physician Assistant | DX: R30.0 Dysuria (principal) | CPT/HCPCS: 87086 ==

== ENCOUNTER → 2022-12-03 08:01 | Outpatient (CLI) | payer MEDICARE, OTHER, SELFPAY ==
[2022-12-03 08:37] LABS: Aspartate Aminotransferase 24 IU/L (14-36); BUN Creatinine Ratio 27.1 (6-22); Blood Urea Nitrogen 16 mg/dL (7-17); Calcium 8.9 mg/dL (8.4-10.2); Carbon Dioxide 25 mmol/L (22-32); Chloride 104 mmol/L (98-107); Cholesterol 210 mg/dL (140-199); Estimated Glomerular Filt Rate > 60 mL/min (>60); Glucose 135 mg/dL (80-110); HDL Cholesterol 37 mg/dL (40-60); HEMOLYSIS < 15 (0-50); LDL Cholesterol Calculated 125 mg/dL (<100); Potassium 4.2 mmol/L (3.4-5.1); Sodium 139 mmol/L (137-145); Triglycerides 242 mg/dL (35-150)
[2022-12-03 08:42] LABS: Hemoglobin A1C% w Est Avg Glu 6.3 % (4.0-6.0)
== END ==
PROVIDERS: PCP Internal Medicine; Referring Provider Internal Medicine; Visit Provider Internal Medicine
DX: E11.42 Type 2 diabetes mellitus with diabetic polyneuropathy (principal); E78.2 Mixed hyperlipidemia
CPT/HCPCS: 36415; 80048; 80061; 83036; 84450

== ENCOUNTER → 2023-04-05 07:08 | Outpatient (CLI) | payer MEDICARE, OTHER, SELFPAY ==
[2023-04-05 08:11] LABS: Aspartate Aminotransferase 23 IU/L (14-36); Blood Urea Nitrogen 18 mg/dL (7-17); Calcium 9.2 mg/dL (8.4-10.2); Carbon Dioxide 26 mmol/L (22-32); Chloride 106 mmol/L (98-107); Cholesterol 173 mg/dL (140-199); Estimated Glomerular Filt Rate > 60 mL/min (>60); Glucose 140 mg/dL (80-110); HDL Cholesterol 34 mg/dL (40-60); HEMOLYSIS < 15 (0-50); LDL Cholesterol Calculated 92 mg/dL (<100); Potassium 4.3 mmol/L (3.4-5.1); Sodium 138 mmol/L (137-145); Triglycerides 236 mg/dL (35-150)
[2023-04-05 08:26] LABS: Creatinine Urine Random 75.9 mg/dL
[2023-04-05 08:31] LABS: Microalbumin Urine Random < 0.6 mg/dL (0-1.6)
[2023-04-06 03:10] LABS: x Labcorp Estim. Avg Glu (eAG) 137 mg/dL (.); x Labcorp Hemoglobin A1c 6.4 % (4.8-5.6)
== END ==
PROVIDERS: PCP Internal Medicine; Referring Provider Internal Medicine; Visit Provider Internal Medicine
DX: E78.2 Mixed hyperlipidemia; I10 Essential (primary) hypertension; E11.42 Type 2 diabetes mellitus with diabetic polyneuropathy
CPT/HCPCS: 36415; 80048; 80061; 82043; 82570; 83036; 84450

== ENCOUNTER → 2023-12-13 07:54 | Outpatient (CLI) | payer MEDICARE, OTHER, SELFPAY ==
[2023-12-13 09:15] LABS: Hemoglobin A1C% w Est Avg Glu 6.1 % (4.0-6.0)
[2023-12-13 09:39] LABS: BUN Creatinine Ratio 27.4 (6-22); Blood Urea Nitrogen 17 mg/dL (7-17); Calcium 9.7 mg/dL (8.4-10.2); Carbon Dioxide 23 mmol/L (22-32); Chloride 105 mmol/L (98-107); Estimated Glomerular Filt Rate > 60 mL/min (>60); Glucose 135 mg/dL (80-110); HEMOLYSIS < 15 (0-50); Potassium 4.2 mmol/L (3.4-5.1); Sodium 137 mmol/L (137-145)
== END ==
PROVIDERS: PCP Internal Medicine; Referring Provider Internal Medicine; Visit Provider Internal Medicine
DX: E11.42 Type 2 diabetes mellitus with diabetic polyneuropathy (principal)
CPT/HCPCS: 36415; 80048; 83036

== ENCOUNTER → 2024-02-04 11:29 | Outpatient (CLI) | payer MEDICARE, OTHER, SELFPAY ==
[2024-02-04 12:23] LABS: Hemoglobin A1C% w Est Avg Glu 5.9 % (4.0-6.0)
[2024-02-04 13:14] LABS: Aspartate Aminotransferase 22 IU/L (14-36); BUN Creatinine Ratio 23.7 (6-22); Blood Urea Nitrogen 14 mg/dL (7-17); Calcium 9.5 mg/dL (8.4-10.2); Carbon Dioxide 25 mmol/L (22-32); Chloride 106 mmol/L (98-107); Cholesterol 149 mg/dL (140-199); Estimated Glomerular Filt Rate > 60 mL/min (>60); Glucose 109 mg/dL (80-110); HDL Cholesterol 37 mg/dL (40-60); HEMOLYSIS < 15 (0-50); LDL Cholesterol Calculated 54 mg/dL (<100); Potassium 3.8 mmol/L (3.4-5.1); Sodium 139 mmol/L (137-145); Triglycerides 290 mg/dL (35-150)
[2024-02-04 13:32] LABS: TSH w/ Reflex to FT4 1.36 uIU/mL (0.47-4.68)
[2024-02-04 15:27] LABS: Creatinine Urine Random 21.4 mg/dL
[2024-02-04 15:42] LABS: Microalbumin Urine Random < 0.6 mg/dL (0-1.6)
== END ==
PROVIDERS: PCP Internal Medicine; Referring Provider Internal Medicine; Visit Provider Internal Medicine
DX: E11.42 Type 2 diabetes mellitus with diabetic polyneuropathy (principal); E03.9 Hypothyroidism, unspecified; E78.2 Mixed hyperlipidemia
CPT/HCPCS: 36415; 80048; 80061; 82043; 82570; 83036; 84443; 84450

== ENCOUNTER → 2024-02-16 11:52 | Outpatient (CLI) | payer MEDICARE, OTHER, SELFPAY ==
[2024-02-16 12:54] LABS: Hematocrit 46.5 % (36-46); Mean Corpuscular HGB Conc 34.5 % (30-36); Mean Corpuscular Hemoglobin 31.9 PG (26-34); Mean Corpuscular Volume 92.6 fL (80-100); Platelet Count 288 X10^3/uL (150-400); Red Blood Cell Count 5.02 X10^6/uL (4.0-5.2); Red Cell Distribution Width 12.9 % (11.6-14.8); White Blood Cell Count 6.7 X10^3/uL (4.5-11.0)
[2024-02-16 13:19] LABS: HEMOLYSIS < 15 (0-50); Iron 103 ug/dL (37-170)
[2024-02-16 13:30] LABS: Percent Iron Saturation 34 % (15-50); Total Iron Binding Capacity 304 ug/dL (265-497); Transferrin 252 mg/dL (206-381)
[2024-02-16 13:54] LABS: Ferritin 37 ng/mL (11-264)
== END ==
PROVIDERS: PCP Internal Medicine; Referring Provider Internal Medicine; Visit Provider Internal Medicine
DX: E61.1 Iron deficiency (principal)
CPT/HCPCS: 36415; 82728; 83540; 83550; 85027

== ENCOUNTER → 2024-09-18 07:18 | Outpatient (CLI) | payer MEDICARE, OTHER, SELFPAY ==
[2024-09-18 07:58] LABS: Hemoglobin A1C% w Est Avg Glu 5.8 % (4.0-6.0)
[2024-09-18 08:13] LABS: BUN Creatinine Ratio 20.6 (6-22); Blood Urea Nitrogen 13 mg/dL (7-17); Calcium 9.5 mg/dL (8.4-10.2); Carbon Dioxide 24 mmol/L (22-32); Chloride 103 mmol/L (98-107); Estimated Glomerular Filt Rate > 60 mL/min (>60); Glucose 116 mg/dL (80-110); HEMOLYSIS < 15 (0-50); Potassium 4.3 mmol/L (3.4-5.1); Sodium 136 mmol/L (137-145)
== END ==
PROVIDERS: PCP Internal Medicine; Referring Provider Internal Medicine; Visit Provider Internal Medicine
DX: E11.42 Type 2 diabetes mellitus with diabetic polyneuropathy (principal); I10 Essential (primary) hypertension; E78.2 Mixed hyperlipidemia; M17.32 Unilateral post-traumatic osteoarthritis, left knee; G47.00 Insomnia, unspecified; N95.2 Postmenopausal atrophic vaginitis; L65.9 Nonscarring hair loss, unspecified; Z86.0100 Personal history of colon polyps, unspecified; E66.3 Overweight; F33.9 Major depressive disorder, recurrent, unspecified
CPT/HCPCS: 36415; 80048; 83036

== ENCOUNTER → 2024-12-25 07:42 | Outpatient (CLI) | payer MEDICARE, OTHER, SELFPAY ==
[2024-12-25 08:34] LABS: Hemoglobin A1C% w Est Avg Glu 5.6 % (4.0-6.0)
[2024-12-25 08:41] LABS: Aspartate Aminotransferase 28 IU/L (14-36); BUN Creatinine Ratio 22.4 (6-22); Blood Urea Nitrogen 15 mg/dL (7-17); Calcium 9.7 mg/dL (8.4-10.2); Carbon Dioxide 25 mmol/L (22-32); Chloride 103 mmol/L (98-107); Cholesterol 185 mg/dL (140-199); Estimated Glomerular Filt Rate > 60 mL/min (>60); Glucose 128 mg/dL (80-110); HDL Cholesterol 39 mg/dL (40-60); HEMOLYSIS < 15 (0-50); LDL Cholesterol Calculated 95 mg/dL (<100); Potassium 4.5 mmol/L (3.4-5.1); Sodium 136 mmol/L (137-145); Triglycerides 255 mg/dL (35-150)
[2024-12-25 10:00] LABS: Creatinine Urine Random 98.12 mg/dL
[2024-12-25 10:04] LABS: Microalbumin Urine Random 0.7 mg/dL (0-1.6)
== END ==
PROVIDERS: PCP Internal Medicine; Referring Provider Internal Medicine; Visit Provider Internal Medicine
DX: I10 Essential (primary) hypertension (principal); E11.42 Type 2 diabetes mellitus with diabetic polyneuropathy; E78.2 Mixed hyperlipidemia
CPT/HCPCS: 36415; 80048; 80061; 82043; 82570; 83036; 84450

== ENCOUNTER → 2025-07-25 07:15 | Outpatient (CLI) | payer MEDICARE, OTHER, SELFPAY ==
[2025-07-25 07:57] LABS: Hemoglobin A1C% w Est Avg Glu 5.9 % (4.0-6.0)
[2025-07-25 08:04] LABS: Blood Urea Nitrogen 23 mg/dL (7-17); Calcium 9.5 mg/dL (8.4-10.2); Carbon Dioxide 25 mmol/L (22-32); Chloride 105 mmol/L (98-107); Estimated Glomerular Filt Rate > 60 mL/min (>60); Glucose 133 mg/dL (70-99); HEMOLYSIS 24 (0-50); Potassium 4.4 mmol/L (3.4-5.1); Sodium 139 mmol/L (137-145)
== END ==
PROVIDERS: PCP Internal Medicine; Referring Provider Internal Medicine; Visit Provider Internal Medicine
DX: E11.42 Type 2 diabetes mellitus with diabetic polyneuropathy (principal)
CPT/HCPCS: 36415; 80048; 83036